=== PATIENT | male | born 1985 | race Caucasian/White ===

== ENCOUNTER 2017-04-20 23:25 | Emergency (ER) | payer OTHER ==
[~2017-04-20] VITALS: Ht 167.6 cm; Wt 72.3 kg
[~2017-04-20 23:25] MED LIST: AUGMENTIN875 MG PO; BACTROBAN NASAL1 G1 BOTH NARES; MUCINEX COLD L118 ML PO; PREDNISONE10 M1 PO; PREDNISONE20 MG PO; VENTOLIN HFA18 GM IH; ZITHROMAX Z-PA250 MG PO
[2017-04-20 23:59] LABS: HEMATOCRIT 42.5 % (38.0-50.0); MCH 30.7 PG (29.0-34.0); MCHC 35.1 G/DL (30.0-36.0); MCV 87.4 FL (86-99); MEAN PLAT.VOLUME 10.5 uM^3 (9.0-12.4); PLATELET COUNT 221 K/uL (156-360); RBC DIS.WIDTH-CV 12.1 % (11.8-14.6); RBC DIS.WIDTH-SD 38.9 % (39-53); RED BLOOD COUNT 4.86 M/uL (4.00-5.50); WHITE BLOOD COUNT 6.1 K/uL (4.1-10.2)
[2017-04-21 00:07] LABS: CHLORIDE 104 mEq/L (99-109); SODIUM 138 mEq/L (136-147)
[2017-04-21 00:09] LABS: GLUCOSE 89 mg/dL (70-99)
[2017-04-21 00:10] LABS: ANION GAP 15 MEQ/L (2-14)
[2017-04-21 00:12] LABS: SERUM ETHYL ALCOHOL 191 mg/dL
[2017-04-21 00:13] LABS: GFR ESTIMATE (CALCULATED) > 59 mL/min/
[2017-04-21 00:14] LABS: UREA NITROGEN (BUN) 15 mg/dL (9-23)
[2017-04-21 04:16] VITALS: BP 128/75
== END 2017-04-21 04:17 | disposition home or self-care (01) ==
LOC: EME → EDBD 23:25 → TRA 23:25
PROVIDERS: Emergency Medicine
DX: F32.9 Major depressive disorder, single episode, unspecified (principal); S00.83XA Contusion of other part of head, initial encounter; S30.0XXA Contusion of lower back and pelvis, initial encounter; Y03.0XXA Assault by being hit or run over by motor vehicle, initial encounter
CPT/HCPCS: 70450; 74176; 80048; 85027; 90837; 99281; 99285; G0480; J1630

== ENCOUNTER 2018-01-01 21:52 | Emergency (ER) | payer OTHER ==
[~2018-01-01] VITALS: Ht 165.1 cm; Wt 62.3 kg
[2018-01-01] MEDS ORDERED: NARCAN4 MG NS (22:53)
[2018-01-01 23:00] VITALS: BP 136/80
== END 2018-01-01 23:02 | disposition home or self-care (01) ==
LOC: EME 21:52
DX: F11.10 Opioid abuse, uncomplicated (principal); T40.1X1A Poisoning by heroin, accidental (unintentional), initial encounter; J45.909 Unspecified asthma, uncomplicated; Z88.1 Allergy status to other antibiotic agents
CPT/HCPCS: 99281; 99285; J7030

== ENCOUNTER 2018-01-11 20:23 | Emergency (ER) | payer OTHER ==
[~2018-01-11] VITALS: Ht 167.6 cm; Wt 57.1 kg
[2018-01-11 20:23] VITALS: BP 117/75
[~2018-01-11 20:23] MED LIST changes: +NARCAN4 MG NS
== END 2018-01-11 21:33 | disposition home or self-care (01) ==
LOC: EME → EDBD 20:23 → EME 21:33
DX: F11.10 Opioid abuse, uncomplicated (principal); J45.909 Unspecified asthma, uncomplicated; Z88.1 Allergy status to other antibiotic agents
CPT/HCPCS: 93005; 99281; 99284